=== PATIENT | female | born 1985 | race Caucasian/White ===

== ENCOUNTER 2018-02-23 09:40 | Emergency (ER) | payer BC ==
--- NOTE | 2018-02-23 11:20 | EDM.PDOC ---
ED HPI GENERAL MEDICAL PROBLEM - General Chief Complaint: Bite:Animal, Insect Stated Complaint: BUG BITE Time Seen by Provider: 02/23/18 10:14 Source of Information: Reports: Patient History Limitations: Reports: No Limitations - History of Present Illness INITIAL COMMENTS - FREE TEXT/NARRATIVE: Possible bug bite on Wednesday. Small bump. Got red. seen Wednesday rx doxycycline. Redness spreding . Now feels weak , sweats . Vague lower abd discomfort. No fever. Actually she says she feels better at time of discharge. Generalized Pain Score (Numeric/FACES): 5 - Related Data Allergies Allergy/AdvReac Type Severity Reaction Status Date / Time No Known Allergies Allergy Verified 02/23/18 10:02 Home Meds: Home Meds Doxycycline [Vibramycin] 1 tab PO BID 02/23/18 [History] Past Medical History HEENT History: Reports: Impaired Vision [employer] JUDGE History: Reports: Endocrine/Metabolic History: Reports: Other (See Below) Other Endocrine/Metabolic History: autoimmune thyroid issues. - Past Surgical History GI Surgical History: Reports: Appendectomy Social & Family History - Tobacco Use Smoking Status *Q: Never Smoker - Recreational Drug Use Recreational Drug Use: No ED ROS GENERAL - Review of Systems Review Of Systems: See Below Constitutional: Reports: Malaise, Weakness, Diaphoresis HEENT: Reports: No Symptoms Respiratory: Reports: No Symptoms Cardiovascular: Reports: No Symptoms Endocrine: Reports: No Symptoms GI/Abdominal: Reports: Other (hpi) : Reports: Other (possible uti) Skin: Reports: Other (hpi) ED EXAM, ANIMAL BITE - Physical Exam Exam: See Below Exam Limited By: No Limitations General Appearance: Alert, WD/WN, Other (a little listless) Respiratory/Chest: Lungs Clear Cardiovascular: Regular Rate, Rhythm GI/Abdominal: Normal Bowel Sounds, Soft, Non-Tender Skin Exam: Other (an area to left inner upper thigh about 8 cm diam. red warm sharp border. about 2.5 cm eschar in center. No abscess) Course - Vital Signs Last Recorded V/S: Last Vital Signs Temp 36.0 C 02/23/18 09:57 Pulse 79 02/23/18 09:57 Resp 13 02/23/18 09:57 BP 96/63 02/23/18 09:57 Pulse Ox 100 02/23/18 09:57 - Orders/Labs/Meds Orders: Active Orders 24 hr Category Date Time Status UA W/MICROSCOPIC [URIN] Urgent Lab 02/23/18 10:44 Ordered Labs: Laboratory Tests 02/23/18 Range/Units 10:57 Urine Color Yellow Urine Appearance Clear Urine pH 8.0 (4.5-8.0) Ur Specific [place] 1.010 (1.008-1.030) Urine Protein Negative (NEGATIVE) mg/dL Urine Glucose (UA) Normal (NEGATIVE) mg/dL Urine Ketones 15 H (NEGATIVE) mg/dL Urine Occult Blood Negative (NEGATIVE) Urine Nitrite Negative (NEGATIVE) Urine Bilirubin Negative (NEGATIVE) Urine Urobilinogen Normal (NORMAL) mg/dL Ur Leukocyte Esterase Negative (NEGATIVE) Urine RBC Not seen (0-5) Urine WBC 0-5 (0-5) Ur Epithelial Cells Not seen Amorphous Sediment Not seen Urine Bacteria Not seen Urine Mucus Not seen - Re-Assessments/Exams Free Text/Narrative Re-Assessment/Exam: 02/23/18 11:20 UA normal. I explained that doxy good for staph and tick bites but may not hit strep well. Add bactrim continue doxy Departure - Departure Time of Disposition: 11:20 Disposition: Home, Self-Care 01 Condition: Fair Clinical Impression: Cellulitis - Discharge Information Referrals: PCP,None [Primary Care Provider] - Additional Instructions: Continue Doxycycline but add Bactrim DS 1 tab twice daily for 7 days. [place]ivo border. May spread a little for next 24 hours then improve. Return to ER if obviously worse. Otherwise see your doctor in 2-3 days. - My Orders Last 24 Hours: My Active Orders 02/23/18 10:44 UA W/MICROSCOPIC [URIN] Urgent - Assessment/Plan Last 24 Hours: My Active Orders 02/23/18 10:44 UA W/MICROSCOPIC [URIN] Urgent
== END 2018-02-23 11:28 | disposition home or self-care (01) ==
LOC: JP.ED 09:40
DX: L03.116 Cellulitis of left lower limb (principal)
CPT/HCPCS: 81001; 99283